=== PATIENT | male | born 1990 | race Caucasian/White ===

== ENCOUNTER → 2017-10-11 17:04 | Outpatient (CLI) | payer BC, OTHER, SELFPAY ==
--- NOTE | 2017-10-11 17:11 | RAD_ITS ---
STUDY: X-RAY - UNILATERAL RIBS ( LEFT ) WITH CHEST REASON FOR EXAM: Male, 27 years old. Left rib pain TECHNIQUE - RIBS: 4 view(s) of the ribs. TECHNIQUE - CHEST: Single frontal view of the chest. COMPARISON: None. FINDINGS - RIBS: Normal visualized ribs without a demonstrated fracture. FINDINGS - CHEST: The lungs are clear and expanded. There is no demonstrated pleural abnormality. Normal size heart. Normal mediastinum and merrick. Normal visualized pulmonary arteries. Normal visualized aortic arch and descending thoracic aorta. Normal visualized thoracic spine. Normal visualized ribs, clavicles, and shoulders. There is no demonstrated abnormality of the visualized soft tissue structures of the upper abdomen. RAD/Ribs Uni Min 3V w/PA Chest IMPRESSION: RIBS: Normal x-ray examination of the ribs. CHEST: Normal x-ray examination of the chest. Electronically Signed: Conor South DO at 8:54 EDT Tel , Service support ,
== END ==
PROVIDERS: Visit Provider Physician Assistant
DX: R07.81 Pleurodynia (principal)
CPT/HCPCS: 71101

== ENCOUNTER → 2025-06-17 | Outpatient (CLI) | payer BC, SELFPAY ==
[2025-06-17 16:11] LABS: Hematocrit 44.4 % (40-54); Hemoglobin 15.5 g/dL (13.0-16.5); Immature Granulocytes Count 0.020 X10^3/uL (0.0-0.0); Mean Corp Hgb Conc 34.9 g/dL (32-36); Mean Corpuscular Volume 84.1 fL (80-94); Mean Platelet Vol. 10.7 fl (6.2-12.0); NRBC Flagged by Analyzer 0 % (0-5); Platelet Count 267 K/mm3 (150-450); RBC Distribution Width CV 12.0 % (11.6-14.6); RBC Distribution Width SD 36.4 fl (35.1-43.9); Red Blood Count 5.28 M/mm3 (4.6-6.2); White Blood Count 5.8 K/mm3 (4.4-11.0)
[2025-06-17 17:29] LABS: AST(SGOT) 16 U/L (<=37); Alanine Aminotransfer ALT/SGPT 15 U/L (<=46); Albumin, Serum 4.8 g/dL (3.5-5.0); Alkaline Phosphatase 61 U/L (40-129); Anion Gap 13 (5-15); BUN 12 mg/dL (4-19); BUN/Creat Ratio 12.2 RATIO (10-20); Calcium,Total 9.6 mg/dL (7.6-11.0); Carbon Dioxide 24.0 mmol/L (21.0-32.0); Chloride 102 mmol/L (98-108); Cholesterol 134 mg/dL (<=200); Globulin 2.8 g/dL (2.2-4.2); Glucose 85 mg/dL (70-99); Low Density Lipoprotein Calc. 81 mg/dL; Potassium 4.0 mmol/L (3.3-5.1); Triglycerides 72 mg/dL; Very Low Density Lipoprotein 14 mg/dL (5-40); cholesterol:hdl ratio screen 3.44
[2025-06-17 17:30] LABS: Ferritin 397 ng/mL (37-417); Follicle Stimulating Hormone 1.0 mIU/mL; Free T3 3.6 pg/mL (2.18-3.98); PSA,Total- Diagnostic 0.95 ng/mL (0.00-4.00); T4 Total, Thyroxin 7.5 ug/dL (4.5-12.1); Vitamin B12 501 pg/mL (180-914); Vitamin D,25 Hydroxy 23.4 ng/mL (30-100)
[2025-06-22 14:08] LABS: PROLACTIN 18.6 ng/mL (3.9-22.7); Testosterone, % Free 2.65 % (1.50-4.20); Testosterone, Free 16.96 ng/dL (5.00-21.00)
== END | disposition home or self-care (01) ==
DX: E22.1 Hyperprolactinemia (principal); E28.1 Androgen excess; E53.9 Vitamin B deficiency, unspecified; E55.9 Vitamin D deficiency, unspecified; E03.9 Hypothyroidism, unspecified; E78.5 Hyperlipidemia, unspecified; E83.119 Hemochromatosis, unspecified; R73.09 Other abnormal glucose; R86.1 Abnormal level of hormones in specimens from male genital organs; R89.1 Abnormal level of hormones in specimens from other organs, systems and tissues; R97.20 Elevated prostate specific antigen [PSA]; R94.6 Abnormal results of thyroid function studies
CPT/HCPCS: 36415; 80053; 80061; 82306; 82607; 82627; 82670; 82728; 83001; 83002; 83036; 84146; 84153; 84270; 84402; 84403; 84436; 84443; 84481; 85025; 82626